=== PATIENT | female | born 1990 | race Two or more races ===

== ENCOUNTER 2018-02-04 15:49 | Emergency (ER) | payer MEDICAID, OTHER ==
[~2018-02-04] VITALS: Ht 152.4 cm; Wt 64.5 kg
[~2018-02-04 15:49] MED LIST: DOCU100C40 PO; HYDR25SU33 RC; NAPR-232 PO; NO HOME MEDS; ONDA4TAB9 PO; PHEN-824 PO
[2018-02-04 15:56] VITALS: BP 134/88
[2018-02-04] MEDS ORDERED: NEOM10DR45 EACH EAR (16:14)
== END 2018-02-04 16:24 | disposition home or self-care (01) ==
LOC: ER 15:50
DX: H60.92 Unspecified otitis externa, left ear (principal); G89.29 Other chronic pain; F12.90 Cannabis use, unspecified, uncomplicated; F15.90 Other stimulant use, unspecified, uncomplicated; Z88.2 Allergy status to sulfonamides; Z79.2 Long term (current) use of antibiotics; Z79.899 Other long term (current) drug therapy
CPT/HCPCS: 99283

== ENCOUNTER 2018-06-22 08:47 | Emergency (ER) | payer MEDICAID ==
[~2018-06-22] VITALS: Ht 162.6 cm; Wt 63.0 kg
[2018-06-22] MEDS ORDERED: normal saline 1000ML IV soln IVB ONE (08:55)
[2018-06-22] MEDS ORDERED: morphine 2 MG/ML inj. syringe IV PRN (08:55)
[2018-06-22 09:47] LABS: BASOPHILS % (AUTO) 0.5 % (0-1); EOSINOPHILS % (AUTO) 0.4 % (0-6); HEMATOCRIT 34.6 % (35.0-45.0); HEMOGLOBIN 11.2 g/dl (12.0-16.0); LYMPHOCYTES # (AUTO) 1.7 X10'3 (1.1-4.8); LYMPHOCYTES % (AUTO) 16.8 % (21-51); MEAN CORPUSCULAR HEMOGLOBIN 24.1 PG (27.0-31.0); MEAN CORPUSCULAR HGB CONC 32.4 g/dL (33.0-36.5); MEAN CORPUSCULAR VOLUME 74.5 FL (78-98); MONOCYTES # (AUTO) 1.1 X10'3 (0-0.9); MONOCYTES % (AUTO) 10.4 % (2-12); NEUTROPHILS # (AUTO) 7.4 X10'3 (1.8-7.7); NEUTROPHILS % (AUTO) 71.9 % (42-75); PLATELET COUNT 233 X10'3 (140-440); RED BLOOD COUNT 4.64 X10'6 (4.20-5.60); RED CELL DISTRIBUTION WIDTH 21.3 % (11.5-14.5); WHITE BLOOD COUNT 10.2 X10'3 (4.5-11.0)
[2018-06-22 10:03] LABS: PARTIAL THROMBOPLASTIN TIME 32 SECONDS (22-32)
[2018-06-22] MEDS ORDERED: iohexol 300mg/ml 100ml inj. ONE (10:29)
[2018-06-22 10:31] LABS: ALANINE AMINOTRANSFERASE 87 U/L (12-78); ALBUMIN 3.3 G/DL (3.4-5.0); ALBUMIN/GLOBULIN RATIO 0.7 (1.1-1.5); ALKALINE PHOSPHATASE 115 IU/L (46-116); ANION GAP 5 (8-16); ASPARTATE AMINO TRANSFERASE 39 U/L (10-37); BILIRUBIN,TOTAL 0.3 MG/DL (0.1-1.0); BLOOD UREA NITROGEN 12 MG/DL (7-18); CALCIUM 9.4 MG/DL (8.5-10.1); CHLORIDE 104 MMOL/L (99-107); CREATININE 0.75 MG/DL (0.40-0.90); GLUCOSE 89 MG/DL (70-104); LIPASE 98 U/L (73-393); MAGNESIUM 2.3 MG/DL (1.5-2.4); SODIUM 138 MMOL/L (135-145); TOTAL CARBON DIOXIDE 28.6 MMOL/L (24-32); TOTAL PROTEIN 7.9 G/DL (6.4-8.2); eGFR > 90 ML/MIN
--- NOTE | 2018-06-22 10:32 | NUR ---
pt out to [place] via wheelchair with irma mejía
--- NOTE | 2018-06-22 10:51 | NUR ---
pt returns [place]
[2018-06-22] MEDS ORDERED: CefTRIAXone 2gm/D5W 50ml 50 ML IV ONE (11:35)
[2018-06-22 12:01] LABS: CLARITY,URINE SLIGHTLY CLOUDY (Clear); COLOR,URINE YELLOW (Yellow); GLUCOSE, URINE NEGATIVE (Neg); KETONES,URINE NEGATIVE (Neg); LEUKOCYTE ESTERASE ,URINE SMALL (Neg); NITRITES, URINE NEGATIVE (Neg); OCCULT BLOOD,URINE MODERATE (Neg); PH,URINE 6.5 (4.8-8.0); PROTEIN,URINE NEGATIVE (Neg); UROBILINOGEN,URINE 0.2 E.U/dL (0.2-1.0)
[2018-06-22 12:06] LABS: UA COLLECTION TYPE CLN CATCH MIDSTREAM
[2018-06-22 12:08] LABS: BACTERIA,URINE FEW /HPF (Neg); MUCUS STRANDS NONE SEEN /LPF (Neg); RBC,URINE 0-2 /HPF (0-2); SQUAMOUS EPITHELIAL CELL,UR MANY /LPF (FEW)
[2018-06-22] MEDS ORDERED: CEPH-572 PO (13:02)
[2018-06-22] MEDS ORDERED: HYDROmorphone 2mg tablet PO ONE (13:10)
[2018-06-22 13:22] VITALS: BP 121/67
== END 2018-06-22 13:23 ==
LOC: ER 08:48
DX: N12 Tubulo-interstitial nephritis, not specified as acute or chronic (principal); N39.0 Urinary tract infection, site not specified; R10.32 Left lower quadrant pain; G43.909 Migraine, unspecified, not intractable, without status migrainosus; G89.29 Other chronic pain; F12.90 Cannabis use, unspecified, uncomplicated; F15.90 Other stimulant use, unspecified, uncomplicated; Z87.891 Personal history of nicotine dependence; Z88.2 Allergy status to sulfonamides
CPT/HCPCS: 36415; 74177; 80053; 81001; 83605; 83690; 83735; 85025; 85610; 85730; 86885; 86900; 86901; 87040; 93005; 96365; 96375; 99284; J0696; J2270; J7030; Q9967

== ENCOUNTER 2020-12-05 17:11 | Emergency (ER) | payer MEDICAID ==
[~2020-12-05] VITALS: Ht 152.4 cm; Wt 70.9 kg
[2020-12-05 17:29] VITALS: BP 130/80
[2020-12-05 18:21] LABS: BASOPHILS % (AUTO) 0.3 % (0-1); EOSINOPHILS # (AUTO) 0.1 X10'3 (0-0.9); EOSINOPHILS % (AUTO) 1.1 % (0-6); HEMATOCRIT 29.4 % (35.0-45.0); HEMOGLOBIN 9.2 g/dl (12.0-16.0); LYMPHOCYTES % (AUTO) 22.8 % (21-51); MEAN CORPUSCULAR HEMOGLOBIN 22.1 PG (27.0-31.0); MEAN CORPUSCULAR HGB CONC 31.1 g/dL (33.0-36.5); MEAN PLATELET VOLUME 7.7 FL (7.4-10.4); MONOCYTES # (AUTO) 0.4 X10'3 (0-0.9); MONOCYTES % (AUTO) 8.4 % (2-12); NEUTROPHILS # (AUTO) 3.1 X10'3 (1.8-7.7); NEUTROPHILS % (AUTO) 67.4 % (42-75); PLATELET COUNT 246 X10'3 (140-440); RED BLOOD COUNT 4.15 X10'6 (4.20-5.60); RED CELL DISTRIBUTION WIDTH 17.5 % (11.5-14.5); WHITE BLOOD COUNT 4.6 X10'3 (4.5-11.0)
[2020-12-05 18:28] LABS: HCG SERUM QL NEGATIVE
[2020-12-05 18:37] LABS: ALANINE AMINOTRANSFERASE 13 U/L (12-78); ALBUMIN 3.9 G/DL (3.4-5.0); ALKALINE PHOSPHATASE 95 IU/L (46-116); ANION GAP 12 (8-16); ASPARTATE AMINO TRANSFERASE 16 U/L (10-37); BILIRUBIN,TOTAL 0.2 MG/DL (0.1-1.0); BLOOD UREA NITROGEN 11 MG/DL (7-18); BUN/CREATININE RATIO 13.9 (6.6-38.0); CALCIUM 9.6 MG/DL (8.5-10.1); CHLORIDE 107 MMOL/L (99-107); CREATININE 0.79 MG/DL (0.40-0.90); GLUCOSE 117 MG/DL (70-104); LIPASE < 50 U/L (73-393); MAGNESIUM 2.2 MG/DL (1.5-2.4); POTASSIUM 4.9 MMOL/L (3.5-5.1); SODIUM 143 MMOL/L (135-145); TOTAL CARBON DIOXIDE 24.3 MMOL/L (24-32); TOTAL PROTEIN 7.9 G/DL (6.4-8.2); eGFR 85 ML/MIN
[2020-12-05] MEDS ORDERED: SERT100T PO (20:41)
[2020-12-05 21:07] LABS: UA COLLECTION TYPE CLN CATCH MIDSTREAM
[2020-12-05 21:08] LABS: CLARITY,URINE CLEAR (Clear); COLOR,URINE YELLOW (Yellow); GLUCOSE, URINE NEGATIVE (Neg); KETONES,URINE 15 mg/dl (Neg); LEUKOCYTE ESTERASE ,URINE NEGATIVE (Neg); NITRITES, URINE NEGATIVE (Neg); OCCULT BLOOD,URINE NEGATIVE (Neg); PH,URINE 7.5 (4.8-8.0); PROTEIN,URINE NEGATIVE (Neg); UROBILINOGEN,URINE 0.2 E.U/dL (0.2-1.0)
== END 2020-12-05 21:34 | disposition home or self-care (01) ==
LOC: ER 17:12
DX: R00.2 Palpitations (principal); R20.0 Anesthesia of skin; T43.226A Underdosing of selective serotonin reuptake inhibitors, initial encounter; Z20.822 Contact with and (suspected) exposure to COVID-19; Z91.138 Patient's unintentional underdosing of medication regimen for other reason; G43.909 Migraine, unspecified, not intractable, without status migrainosus; G89.29 Other chronic pain; F41.9 Anxiety disorder, unspecified; F12.90 Cannabis use, unspecified, uncomplicated; F15.90 Other stimulant use, unspecified, uncomplicated; Z72.89 Other problems related to lifestyle; Z88.2 Allergy status to sulfonamides; Z79.899 Other long term (current) drug therapy; Y92.89 Other specified places as the place of occurrence of the external cause
CPT/HCPCS: 36415; 80053; 81003; 83690; 83735; 84703; 85025; 99283; U0003; U0005

== ENCOUNTER 2021-07-29 15:40 | Emergency (ER) | payer MEDICAID ==
[~2021-07-29] VITALS: Ht 152.4 cm; Wt 50.0 kg
[~2021-07-29 15:40] MED LIST changes: +SERT100T PO
[2021-07-29 15:52] VITALS: BP 143/91
== END 2021-07-29 18:32 ==
LOC: ER 15:41
DX: F19.10 Other psychoactive substance abuse, uncomplicated (principal); Z88.2 Allergy status to sulfonamides; Z79.899 Other long term (current) drug therapy
CPT/HCPCS: 99283; 99284